=== PATIENT | male | born 1975 | race Caucasian/White ===

== ENCOUNTER 2019-06-04 00:39 | Emergency (ER) | payer SELFPAY ==
[~2019-06-04] VITALS: Ht 172.7 cm; Wt 77.1 kg
[2019-06-04 00:40] VITALS: Ht 172.7 cm; Wt 77.1 kg
[2019-06-04 01:46] LABS: BASOPHIL % 0.6 % (0-2); PLATELET COUNT 219 x10^3mcL (130-400); RED CELL DISTRIBUTION WIDTH 12.1 % (11.5-14.5)
[2019-06-04 01:56] LABS: CARBON DIOXIDE 24.9 mmol/L (21-32); CHLORIDE SERUM 105 mmol/L (98-107); CREATININE SERUM 0.9 mg/dL (0.7-1.3); GFR1 > 60 mL/min; GLUCOSE SERUM 131 mg/dL (74-106); POTASSIUM SERUM 3.9 mmol/L (3.5-5.1); SODIUM SERUM 142 mmol/L (136-145)
[2019-06-04 02:02] LABS: ALBUMIN 4.2 g/dL (3.4-5.0); ALKALINE PHOSPHATASE 81 U/L (46-116); ALT/SGPT 68 U/L (16-63); AST/SGOT 24 U/L (15-37); BILIRUBIN TOTAL 0.24 mg/dL (0.20-1.00); LIPASE 99 IU/L (73-393)
[2019-06-04 02:03] LABS: TOTAL PROTEIN, SERUM 8.3 g/dL (6.4-8.2)
[2019-06-04 03:32] LABS: AMPHETAMINE QUAL UR NONE DETECTED (See below)
[2019-06-04 04:14] VITALS: BP 115/75
== END 2019-06-04 04:14 | disposition home or self-care (01) ==
LOC: ED 00:39
PROVIDERS: Emergency Medicine
DX: F10.129 Alcohol abuse with intoxication, unspecified (principal); R51 Headache; R07.89 Other chest pain
CPT/HCPCS: G0480; J7030